=== PATIENT | male | born 1945 | race Caucasian/White ===

== ENCOUNTER 2021-01-02 09:04 | Emergency (ER) | payer OTHER ==
[~2021-01-02] VITALS: Ht 182.9 cm; Wt 85.7 kg
[2021-01-02 09:52] LABS: Basophils # (auto) 0.1 10 ^3/uL (0-0.2); Basophils % (auto) 1.1 % (0.0-2.0); Eosinophils # (auto) 0 10 ^3/uL (0-0.8); Eosinophils % (auto) 0.5 % (0.0-7.0); Hematocrit 48.5 % (41.0-53.0); Hemoglobin 16.5 g/dL (13.5-17.5); Lymphocytes # (auto) 1.5 10 ^3/uL (0.4-5.4); Lymphocytes % (auto) 20.2 % (10.0-50.0); Mean Corpuscular Hgb Conc. 34.1 g/dL (32.0-36.0); Mean Corpuscular Volume 93.9 fL (80.0-100.0); Monocytes # (auto) 0.5 10 ^3/uL (0-1.3); Monocytes % (auto) 7.4 % (0.0-12.0); Neutrophils # (auto) 5.2 10 ^3/uL (1.6-8.6); Neutrophils % (auto) 70.8 % (37.0-80.0); Red Blood Cells 5.16 10^6/uL (4.5-5.90); Red Cell Distribution Width 13.7 % (11.8-14.3); White Blood Cell 7.4 10^3/uL (4.4-10.8)
[2021-01-02 10:15] LABS: Potassium 4.2 mmol/L (3.5-5.1)
[2021-01-02 10:24] LABS: Albumin 3.5 g/dL (3.4-5.0); BUN/Creatinine Ratio 24.9; Bilirubin, Total 0.6 mg/dL (0.2-1.0); Calcium 8.8 mg/dL (8.5-10.1); Total Protein 6.8 g/dL (6.4-8.2)
[2021-01-02 11:53] VITALS: BP 112/64
== END 2021-01-02 11:52 | disposition home or self-care (01) ==
LOC: ER 09:04
DX: S09.8XXA Other specified injuries of head, initial encounter (principal); R55 Syncope and collapse; E11.9 Type 2 diabetes mellitus without complications; E78.5 Hyperlipidemia, unspecified; F17.210 Nicotine dependence, cigarettes, uncomplicated; W18.39XA Other fall on same level, initial encounter; Y93.89 Activity, other specified; Y92.89 Other specified places as the place of occurrence of the external cause; Y99.8 Other external cause status
CPT/HCPCS: 36415; 70450; 71045; 80053; 84484; 85025

== ENCOUNTER 2022-09-13 16:37 | Emergency (ER) | payer OTHER ==
[~2022-09-13] VITALS: Ht 177.8 cm; Wt 79.0 kg
[2022-09-13 17:16] LABS: Basophils # (auto) 0 10 ^3/uL (0-0.2); Basophils % (auto) 0.6 % (0.0-2.0); Eosinophils # (auto) 0.1 10 ^3/uL (0-0.8); Eosinophils % (auto) 1.6 % (0.0-7.0); Hematocrit 44.7 % (41.0-53.0); Hemoglobin 15.3 g/dL (13.5-17.5); Lymphocytes # (auto) 0.8 10 ^3/uL (0.4-5.4); Lymphocytes % (auto) 11.8 % (10.0-50.0); Mean Corpuscular Hemoglobin 31.2 pg (28.0-32.0); Mean Corpuscular Hgb Conc. 34.4 g/dL (32.0-36.0); Mean Corpuscular Volume 90.7 fL (80.0-100.0); Monocytes # (auto) 0.5 10 ^3/uL (0-1.3); Monocytes % (auto) 6.8 % (0.0-12.0); Neutrophils # (auto) 5.6 10 ^3/uL (1.6-8.6); Neutrophils % (auto) 79.2 % (37.0-80.0); Nucleated Red Blood Cells % 0.3 %; Red Blood Cells 4.92 10^6/uL (4.5-5.90); Red Cell Distribution Width 14.1 % (11.8-14.3); White Blood Cell 7.1 10^3/uL (4.4-10.8)
[2022-09-13 17:35] LABS: INR 1.05 (0.9-1.15); Partial Thromboplastin Time 30.3 SEC (24.5-34.5)
[2022-09-13 17:36] LABS: Albumin 4.1 g/dL (3.4-5.0); Calcium 8.7 mg/dL (8.5-10.1); Magnesium 2.4 mg/dL (1.6-2.6); Potassium 3.6 mmol/L (3.5-5.1)
[2022-09-13 17:38] LABS: BUN/Creatinine Ratio 14.7 (10.0-20.0); Bilirubin, Total 0.7 mg/dL (0.2-1.0); Total Protein 6.9 g/dL (6.4-8.2)
[2022-09-13] MEDS ORDERED: ACETAMINOPHEN 325 MG TAB PO PRN (21:15)
[2022-09-13] MEDS ORDERED: MORPHINE SULFATE INJ 2 MG/ml SYRG IV PRN (21:15)
[2022-09-13] MEDS ORDERED: NITROGLYCERIN 0.4 MG SL TAB SL PRN (21:15)
[2022-09-13] MEDS ORDERED: DEXTROSE (50%) 50ML SYRG IV PRN (21:15)
[2022-09-13] MEDS ORDERED: ONDANSETRON HCL 4 MG/2 ML VIAL IV PRN (21:15)
[2022-09-13 21:53] VITALS: BP 134/88; PULSE 84; RESP 18; TEMP 98.2; O2SAT 98
[2022-09-13] MEDS ORDERED: DONEPEZIL HYDROCHLORIDE 5 MG TAB PO SCH (22:00)
[2022-09-13] MEDS ORDERED: ATORVASTATIN 20 MG TAB PO SCH (22:00)
[2022-09-13] MEDS ORDERED: busPIRone HCL 10 MG TAB PO SCH (22:00)
[2022-09-13] MEDS ORDERED: ACCU-CHEK COMFORT CURVE STRIP VI SCH (22:00)
[2022-09-13] MEDS ORDERED: InsuLIN REG 1unit/0.01ml Soln (100units/ml) SC SCH (22:00)
[2022-09-14] MEDS ORDERED: HCTZ 25 MG TAB PO SCH (10:00)
[2022-09-14] MEDS ORDERED: SERTRALINE HCL 50 MG TAB PO SCH (10:00)
[2022-09-14] MEDS ORDERED: TAMSULOSIN HYDROCHLORIDE 0.4 MG CAP PO SCH (18:00)
== END 2022-09-14 01:00 | disposition left against medical advice (07) ==
LOC: ER 16:37 → UNDOADMIN 21:20 → TELE 21:20 → UNDODISIN 09-14 01:42
DX: R41.82 Altered mental status, unspecified (principal); I12.9 Hypertensive chronic kidney disease with stage 1 through stage 4 chronic kidney disease, or unspecified chronic kidney disease; E11.22 Type 2 diabetes mellitus with diabetic chronic kidney disease; N18.9 Chronic kidney disease, unspecified; E78.5 Hyperlipidemia, unspecified
CPT/HCPCS: 36415; 70450; 71045; 80053; 82140; 82962; 83735; 83880; 84484; 85025; 85610; 85730; 86850; 86900; 86901; 87040; 93005; 93886; G0378

== ENCOUNTER 2023-01-03 10:15 | Inpatient (IN) | payer OTHER ==
[~2023-01-03] VITALS: Ht 180.3 cm; Wt 78.0 kg
[2023-01-03] MEDS ORDERED: ONDANSETRON HCL 4 MG/2 ML VIAL IV ONE ×2 (15:00→15:15)
[2023-01-03] MEDS ORDERED: MORPHINE SULFATE 4 MG/ML SYR/VIAL IV ONE ×2 (15:00→15:15)
[2023-01-03 15:06] VITALS: PULSE 80; RESP 16; O2SAT 98
[2023-01-03] MEDS ORDERED: TETANUS-DIPTH-ACEL PERTUSSIS 0.5ML SYR Tdap IM ONE (15:15)
[2023-01-03] MEDS ORDERED: SODIUM CHLORIDE 0.9% 1,000 ML IV ONE (15:15)
[2023-01-03 15:52] LABS: Alanine Aminotransferase 10 U/L (7-40); Albumin 4.2 g/dL (3.2-4.8); Alkaline Phosphatase 102 U/L (46-116); Anion Gap 4 (5-15); Aspartate Aminotransferase 8 U/L (13-40); BUN/Creatinine Ratio 9.6 (10.0-20.0); Blood Urea Nitrogen 19 mg/dL (9-23); Calcium 8.9 mg/dL (8.7-10.4); Carbon Dioxide 27 mmol/L (20-30); Chloride 97 mmol/L (98-107); Glucose 102 mg/dL (74-106); Potassium 3.7 mmol/L (3.5-5.1); Sodium 128 mmol/L (136-145)
[2023-01-03 15:53] LABS: Bilirubin, Total 0.6 mg/dL (0.2-1.0); Total Protein 6.5 g/dL (5.7-8.2)
[2023-01-03 15:54] LABS: INR 1.09 (0.9-1.15); Partial Thromboplastin Time 31.3 SEC (24.5-34.5); Prothrombin Time 11.4 sec (9.3-11.8)
[2023-01-03 15:58] LABS: Basophils # (auto) 0 10 ^3/uL (0-0.2); Basophils % (auto) 0.3 % (0.0-2.0); Eosinophils # (auto) 0.1 10 ^3/uL (0-0.8); Hemoglobin 13.3 g/dL (13.5-17.5); Lymphocytes # (auto) 1.1 10 ^3/uL (0.4-5.4); Lymphocytes % (auto) 14.5 % (10.0-50.0); Mean Corpuscular Hemoglobin 31.4 pg (28.0-32.0); Mean Corpuscular Hgb Conc. 34.2 g/dL (32.0-36.0); Monocytes # (auto) 0.7 10 ^3/uL (0-1.3); Monocytes % (auto) 8.6 % (0.0-12.0); Neutrophils # (auto) 5.7 10 ^3/uL (1.6-8.6); Neutrophils % (auto) 75.6 % (37.0-80.0); Nucleated Red Blood Cells % 0.1 %; Red Blood Cells 4.24 10^6/uL (4.5-5.90); Red Cell Distribution Width 14.3 % (11.8-14.3); White Blood Cell 7.6 10^3/uL (4.4-10.8)
[2023-01-03] MEDS ORDERED: MORPHINE SULFATE 4 MG/ML SYR/VIAL IV PRN (17:15)
[2023-01-03] MEDS ORDERED: MORPHINE SULFATE INJ 2 MG/ml SYRG IV PRN (17:15)
[2023-01-03] MEDS: D5W/SOD CHL 0.45% 1,000 ML IV SCH (17:15)
[2023-01-03] MEDS ORDERED: NITROGLYCERIN 0.4 MG SL TAB SL PRN (17:15)
[2023-01-03] MEDS ORDERED: ONDANSETRON HCL 4 MG/2 ML VIAL IV PRN (17:15)
[2023-01-03 22:00] VITALS: BP 130/79; PULSE 84; RESP 15; TEMP 97; O2SAT 94
[2023-01-04] VITALS (8 sets, daily range): BP systolic 130–162; BP diastolic 79–97; PULSE 69–93; RESP 16–20; TEMP 97–99.4; O2SAT 93–96
[2023-01-04 00:07] LABS: Urine Bacteria NONE SEEN /hpf (None Seen); Urine Blood Negative /uL (Negative); Urine Clarity Clear (Clear); Urine Color Colorless (Yellow); Urine Protein, UAD Negative (Negative); Urine Specific Gravity 1.004 (1.001-1.035); Urine Urobilinogen Normal (Negative); Urine WBC <1 /hpf (0 - 3)
[2023-01-04] MEDS ORDERED: OMEP20TA PO (03:06)
[2023-01-04] MEDS ORDERED: AMIT25TA20 PO (03:06)
[2023-01-04] MEDS ORDERED: BUSP15TA60 PO (03:06)
[2023-01-04] MEDS ORDERED: TAMS1CAP25 PO (03:06)
[2023-01-04] MEDS ORDERED: SIMV5TAB14 PO (03:06)
[2023-01-04] MEDS ORDERED: MEMA1TAB3 PO (03:06)
[2023-01-04] MEDS ORDERED: SERT-206 PO (03:06)
[2023-01-04] MEDS ORDERED: DONE1TAB88 PO (03:06)
[2023-01-04] MEDS ORDERED: GLIP10TA9 PO (03:06)
[2023-01-04] MEDS: hydrALAZINE HCL 20 MG/ML VL IV PRN ×2 (06:06→22:12)
[2023-01-04 06:51] LABS: Chloride 103 mmol/L (98-107); Potassium 4.1 mmol/L (3.5-5.1)
[2023-01-04 06:52] LABS: Anion Gap 6 (5-15); Calcium 8.8 mg/dL (8.7-10.4); Carbon Dioxide 25 mmol/L (20-30)
[2023-01-04 06:54] LABS: Basophils # (auto) 0 10 ^3/uL (0-0.2); Basophils % (auto) 0.4 % (0.0-2.0); Eosinophils # (auto) 0.1 10 ^3/uL (0-0.8); Eosinophils % (auto) 1.8 % (0.0-7.0); Hematocrit 40.3 % (41.0-53.0); Hemoglobin 13.8 g/dL (13.5-17.5); Lymphocytes # (auto) 0.5 10 ^3/uL (0.4-5.4); Lymphocytes % (auto) 7.8 % (10.0-50.0); Mean Corpuscular Hemoglobin 31.6 pg (28.0-32.0); Mean Corpuscular Hgb Conc. 34.3 g/dL (32.0-36.0); Mean Corpuscular Volume 92.1 fL (80.0-100.0); Monocytes # (auto) 0.5 10 ^3/uL (0-1.3); Monocytes % (auto) 9.2 % (0.0-12.0); Neutrophils # (auto) 4.7 10 ^3/uL (1.6-8.6); Neutrophils % (auto) 80.8 % (37.0-80.0); Red Blood Cells 4.37 10^6/uL (4.5-5.90); Red Cell Distribution Width 14.3 % (11.8-14.3); White Blood Cell 5.8 10^3/uL (4.4-10.8)
[2023-01-04 06:57] LABS: BUN/Creatinine Ratio 10.8 (10.0-20.0); Blood Urea Nitrogen 21 mg/dL (9-23); Glucose 134 mg/dL (74-106)
[2023-01-04] MEDS: D5W/SOD CHL 0.45% 1,000 ML IV SCH ×2 (07:00→19:55)
[2023-01-04 07:06] LABS: Sodium 134 mmol/L (136-145)
[2023-01-04 07:08] LABS: INR 1.1 (0.9-1.15); Partial Thromboplastin Time 31.8 SEC (24.5-34.5); Prothrombin Time 11.5 sec (9.3-11.8)
[2023-01-04] MEDS: FAMOTIDINE (10MG/ML) 2ML VL IV SCH (08:49)
[2023-01-04] MEDS: MORPHINE SULFATE INJ 2 MG/ml SYRG IV PRN ×2 (08:49→16:53)
[2023-01-04] MEDS: cefTRIAXone 1GM/50ML D5W 50 ML IV SCH (08:50)
[2023-01-05 05:00] VITALS: BP 140/88; PULSE 96; RESP 18; TEMP 98.5; O2SAT 95
[2023-01-05 08:00] VITALS: BP 148/85; PULSE 83; PULSE 89; PULSE 94; RESP 17; RESP 18; TEMP 98.3; O2SAT 95
[2023-01-05] MEDS: cefTRIAXone 1GM/50ML D5W 50 ML IV SCH (08:56)
[2023-01-05] MEDS: FAMOTIDINE (10MG/ML) 2ML VL IV SCH (08:56)
[2023-01-05] MEDS: D5W/SOD CHL 0.45% 1,000 ML IV SCH (08:58)
[2023-01-05] MEDS: hydrALAZINE HCL 20 MG/ML VL IV PRN (08:58)
[2023-01-05 09:00] VITALS: BP 153/95; PULSE 94; RESP 18; TEMP 97.9; O2SAT 94
[2023-01-05 13:00] VITALS: BP 121/75; PULSE 84; RESP 19; TEMP 97.7; O2SAT 98
[2023-01-05] MEDS ORDERED: SENN-105 PO (13:09)
[2023-01-05] MEDS ORDERED: HYDR-4902 PO (13:09)
[2023-01-05 17:00] VITALS: BP 126/79; PULSE 86; RESP 19; TEMP 97.9; O2SAT 98
[2023-01-05] MEDS ORDERED: DONEPEZIL HYDROCHLORIDE 5 MG TAB PO SCH (22:00)
[2023-01-05] MEDS ORDERED: busPIRone HCL 10 MG TAB PO SCH (22:00)
[2023-01-05] MEDS ORDERED: MEMANTINE HCL 5 MG TAB PO SCH (22:00)
[2023-01-05] MEDS ORDERED: AMITRIPTYLINE HCL 25 MG TAB PO SCH (22:00)
[2023-01-06] MEDS ORDERED: TAMSULOSIN HYDROCHLORIDE 0.4 MG CAP PO SCH (10:00)
[2023-01-06] MEDS ORDERED: SERTRALINE HCL 50 MG TAB PO SCH (10:00)
== END 2023-01-05 18:15 | disposition home health service (06) | DRG 536 ==
LOC: ER 10:15 → TELE 17:17 → TELE-EAST 22:01
PROVIDERS: ADMIT Hospitalist; ATTEND Hospitalist
DX: S72.111A Displaced fracture of greater trochanter of right femur, initial encounter for closed fracture (principal); E87.1 Hypo-osmolality and hyponatremia; G30.9 Alzheimer's disease, unspecified; E78.5 Hyperlipidemia, unspecified; N18.9 Chronic kidney disease, unspecified; F02.80 Dementia in other diseases classified elsewhere, unspecified severity, without behavioral disturbance, psychotic disturbance, mood disturbance, and anxiety; E11.22 Type 2 diabetes mellitus with diabetic chronic kidney disease; Z53.9 Procedure and treatment not carried out, unspecified reason; F17.210 Nicotine dependence, cigarettes, uncomplicated; W01.0XXA Fall on same level from slipping, tripping and stumbling without subsequent striking against object, initial encounter; I12.9 Hypertensive chronic kidney disease with stage 1 through stage 4 chronic kidney disease, or unspecified chronic kidney disease; Z86.73 Personal history of transient ischemic attack (TIA), and cerebral infarction without residual deficits; I25.2 Old myocardial infarction; Y93.89 Activity, other specified; Y92.89 Other specified places as the place of occurrence of the external cause; Y99.8 Other external cause status; Z23 Encounter for immunization
CPT/HCPCS: 36415; 70450; 71045; 72125; 72170; 73070; 73502; 73700; 80048; 80053; 81001; 85025; 85610; 85730; 86850; 86900; 86901; 87081; 93306; 97163; G0378; J0696; J2405; J3490

== ENCOUNTER 2023-05-23 18:09 | Emergency (ER) | payer OTHER, MEDICAID ==
[~2023-05-23] VITALS: Ht 188 cm; Wt 78.0 kg
[~2023-05-23 18:09] MED LIST: AMIT25TA20 PO; BUSP15TA60 PO; DONE1TAB88 PO; GLIP10TA9 PO; HYDR-4902 PO; MEMA1TAB3 PO; OMEP20TA PO; SENN-105 PO; SERT-206 PO; SIMV5TAB14 PO; TAMS1CAP25 PO
[2023-05-23 18:58] LABS: Basophils # (auto) 0 10 ^3/uL (0-0.2); Basophils % (auto) 0.5 % (0.0-2.0); Eosinophils # (auto) 0.1 10 ^3/uL (0-0.8); Eosinophils % (auto) 1.1 % (0.0-7.0); Hematocrit 41.8 % (41.0-53.0); Hemoglobin 14.2 g/dL (13.5-17.5); Lymphocytes # (auto) 1.4 10 ^3/uL (0.4-5.4); Lymphocytes % (auto) 19.1 % (10.0-50.0); Mean Corpuscular Hemoglobin 30.4 pg (28.0-32.0); Mean Corpuscular Volume 89.5 fL (80.0-100.0); Monocytes # (auto) 0.9 10 ^3/uL (0-1.3); Neutrophils # (auto) 4.8 10 ^3/uL (1.6-8.6); Neutrophils % (auto) 66.3 % (37.0-80.0); Red Blood Cells 4.67 10^6/uL (4.5-5.90); Red Cell Distribution Width 14.3 % (11.8-14.3); White Blood Cell 7.2 10^3/uL (4.4-10.8)
[2023-05-23 19:16] LABS: Alanine Aminotransferase 16 U/L (7-40); Albumin 4.9 g/dL (3.2-4.8); Alkaline Phosphatase 141 U/L (46-116); Anion Gap 8 (5-15); Aspartate Aminotransferase 19 U/L (13-40); BUN/Creatinine Ratio 23.5 (10.0-20.0); Calcium 10.2 mg/dL (8.7-10.4); Carbon Dioxide 27 mmol/L (20-30); Chloride 97 mmol/L (98-107); Glucose 112 mg/dL (74-106); Potassium 3.4 mmol/L (3.5-5.1); Sodium 132 mmol/L (136-145)
[2023-05-23 19:17] LABS: Bilirubin, Total 0.6 mg/dL (0.2-1.0); Total Protein 7.3 g/dL (5.7-8.2)
[2023-05-23 19:20] LABS: Blood Urea Nitrogen 58 mg/dL (9-23)
[2023-05-23 19:35] VITALS: BP 144/84; PULSE 72; RESP 17; TEMP 98.3; O2SAT 96
== END 2023-05-23 19:58 | disposition home or self-care (01) ==
LOC: ER 18:09
DX: R53.1 Weakness (principal); G30.9 Alzheimer's disease, unspecified; F02.80 Dementia in other diseases classified elsewhere, unspecified severity, without behavioral disturbance, psychotic disturbance, mood disturbance, and anxiety; E11.22 Type 2 diabetes mellitus with diabetic chronic kidney disease; I12.9 Hypertensive chronic kidney disease with stage 1 through stage 4 chronic kidney disease, or unspecified chronic kidney disease; N18.9 Chronic kidney disease, unspecified; E78.5 Hyperlipidemia, unspecified; Z86.73 Personal history of transient ischemic attack (TIA), and cerebral infarction without residual deficits
CPT/HCPCS: 36415; 70450; 71045; 80053; 82140; 82962; 84484; 85025; 93005

== ENCOUNTER 2023-05-30 18:17 | Emergency (ER) | payer OTHER, MEDICAID ==
[~2023-05-30] VITALS: Ht 167.6 cm; Wt 75.0 kg
[2023-05-30 18:59] LABS: Basophils # (auto) 0 10 ^3/uL (0-0.2); Basophils % (auto) 0.5 % (0.0-2.0); Eosinophils # (auto) 0.1 10 ^3/uL (0-0.8); Eosinophils % (auto) 0.9 % (0.0-7.0); Hemoglobin 13.5 g/dL (13.5-17.5); Lymphocytes # (auto) 1.1 10 ^3/uL (0.4-5.4); Lymphocytes % (auto) 19.4 % (10.0-50.0); Mean Corpuscular Hemoglobin 30.7 pg (28.0-32.0); Mean Corpuscular Hgb Conc. 33.7 g/dL (32.0-36.0); Mean Corpuscular Volume 91.2 fL (80.0-100.0); Monocytes # (auto) 0.5 10 ^3/uL (0-1.3); Monocytes % (auto) 8.5 % (0.0-12.0); Neutrophils % (auto) 70.7 % (37.0-80.0); Nucleated Red Blood Cells % 0.1 %; Red Blood Cells 4.39 10^6/uL (4.5-5.90); Red Cell Distribution Width 14.9 % (11.8-14.3); White Blood Cell 5.7 10^3/uL (4.4-10.8)
[2023-05-30 19:15] LABS: INR 1.06 (0.9-1.15); Prothrombin Time 11.1 sec (9.3-11.8)
[2023-05-30 19:28] LABS: Alanine Aminotransferase 20 U/L (7-40); Albumin 4.6 g/dL (3.2-4.8); Alkaline Phosphatase 142 U/L (46-116); Anion Gap 5 (5-15); Aspartate Aminotransferase 17 U/L (13-40); BUN/Creatinine Ratio 11.6 (10.0-20.0); Bilirubin, Total 0.5 mg/dL (0.2-1.0); Blood Urea Nitrogen 20 mg/dL (9-23); Calcium 9.8 mg/dL (8.7-10.4); Carbon Dioxide 27 mmol/L (20-30); Chloride 100 mmol/L (98-107); Glucose 160 mg/dL (74-106); Potassium 4.3 mmol/L (3.5-5.1); Sodium 132 mmol/L (136-145); Total Protein 7.1 g/dL (5.7-8.2)
[2023-05-30 19:41] LABS: Urine WBC None Seen /hpf (0 - 3)
[2023-05-30 19:56] LABS: Urine Bacteria NONE SEEN /hpf (None Seen); Urine Blood Negative /uL (Negative); Urine Clarity Clear (Clear); Urine Color Colorless (Yellow); Urine Protein, UAD Negative (Negative); Urine Specific Gravity 1.005 (1.001-1.035); Urine Urobilinogen Normal (Negative); Urine pH 6.5 (5.0-8.0)
[2023-05-30 21:00] VITALS: PULSE 83; RESP 14; O2SAT 96
[2023-05-31 04:00] VITALS: PULSE 82; RESP 16; O2SAT 96
[2023-05-31] MEDS: ALBUTEROL SULF 2.5 MG/0.5ML(0.5%) NEB SOLN NEB ONE (07:54)
[2023-05-31] MEDS: LORazepam 0.5 MG TAB PO ONE (14:41)
[2023-05-31 20:17] VITALS: PULSE 87; RESP 16; O2SAT 97
[2023-06-01] MEDS: LORazepam 2MG/ML-1ML VIAL ONE (06:01)
[2023-06-01] MEDS: LORazepam 2MG/ML-1ML VIAL IV ONE (06:01)
[2023-06-01] MEDS ORDERED: DOCUSATE SOD 100 MG CAP PO PRN (15:15)
[2023-06-01] MEDS ORDERED: ACETAMINOPHEN 325 MG TAB PO PRN (15:15)
[2023-06-01] MEDS ORDERED: ONDANSETRON HCL 4 MG/2 ML VIAL IV PRN (15:15)
[2023-06-01] MEDS ORDERED: IPRATROPIUM BROM 0.5 MG/2.5ML INH SOL NEB PRN (15:45)
[2023-06-01] MEDS ORDERED: hydrALAZINE HCL 20 MG/ML VL IV PRN (15:45)
[2023-06-01] MEDS ORDERED: LORazepam 0.5 MG TAB PO PRN (15:45)
[2023-06-01] MEDS ORDERED: DEXTROSE (50%) 50ML SYRG IV PRN (15:45)
[2023-06-01] MEDS ORDERED: ALBUTEROL SULF 2.5 MG/0.5ML(0.5%) NEB SOLN NEB PRN (15:45)
[2023-06-01 16:00] VITALS: O2SAT 98
[2023-06-01] MEDS: InsuLIN REG 1unit/0.01ml Soln (100units/ml) SC SCH (17:00)
[2023-06-01] MEDS: ACCU-CHEK COMFORT CURVE STRIP VI SCH (17:00)
[2023-06-01 19:45] VITALS: BP 144/74; PULSE 84; RESP 20; TEMP 98; O2SAT 97
[2023-06-01] MEDS ORDERED: AMITRIPTYLINE HCL 25 MG TAB PO SCH (22:00)
[2023-06-01] MEDS ORDERED: PRAVASTATIN SODIUM 20 MG TAB PO SCH (22:00)
[2023-06-01] MEDS ORDERED: busPIRone HCL 10 MG TAB PO SCH (22:00)
[2023-06-01] MEDS ORDERED: DONEPEZIL HYDROCHLORIDE 5 MG TAB PO SCH (22:00)
[2023-06-01] MEDS ORDERED: MEMANTINE HCL 5 MG TAB PO SCH (22:00)
[2023-06-02] MEDS ORDERED: SERTRALINE HCL 50 MG TAB PO SCH (10:00)
[2023-06-02] MEDS ORDERED: PANTOPRAZOLE 40 MG TAB PO SCH (10:00)
== END 2023-06-01 15:05 | disposition home or self-care (01) ==
LOC: EDBD 18:17 → ER 18:17 → OVERFLOW 06-01 15:05 → UNDOADMIN 06-01 15:05
DX: R41.82 Altered mental status, unspecified (principal); F03.90 Unspecified dementia, unspecified severity, without behavioral disturbance, psychotic disturbance, mood disturbance, and anxiety; J44.9 Chronic obstructive pulmonary disease, unspecified; E11.22 Type 2 diabetes mellitus with diabetic chronic kidney disease; I12.9 Hypertensive chronic kidney disease with stage 1 through stage 4 chronic kidney disease, or unspecified chronic kidney disease; N18.9 Chronic kidney disease, unspecified
CPT/HCPCS: 36415; 70450; 71045; 80053; 81001; 83880; 84484; 85025; 85379; 85610; 85730; 94640; 99285; J2060